=== PATIENT | female | born 1985 | race Caucasian/White ===

== ENCOUNTER 2023-04-27 20:00 | Emergency (ER) | payer OTHER ==
[~2023-04-27] VITALS: Ht 147.3 cm; Wt 53.1 kg
[2023-04-27 20:07] VITALS: BP 119/65
[2023-04-27 20:10] VITALS: BP 119/65
--- NOTE | 2023-04-27 22:11 | NUR ---
Dr. Bullard examining patient.
[2023-04-27] MEDS ORDERED: BACI-416 TP (22:26)
[2023-04-27] MEDS ORDERED: BACITRACIN OINT 500 UNITS/GM PKT TP ONE (22:43)
--- NOTE | 2023-04-27 22:50 | NUR ---
DRESSING APPLIED TO L UPPER LEG WOUND
--- NOTE | 2023-04-27 22:50 | NUR ---
Patient discharged with v/s stable. Written and verbal after care instructions given and explained. Patient verbalized understanding. Ambulatory with to car. All questions addressed prior to discharge. Advised to follow up with PMD.
== END 2023-04-27 22:50 | disposition home or self-care (01) ==
LOC: MED 20:00
DX: T24.112A Burn of first degree of left thigh, initial encounter (principal); T31.0 Burns involving less than 10% of body surface; Z79.899 Other long term (current) drug therapy; X08.8XXA Exposure to other specified smoke, fire and flames, initial encounter; Y93.89 Activity, other specified; Y92.89 Other specified places as the place of occurrence of the external cause; Y99.8 Other external cause status
CPT/HCPCS: 99282